=== PATIENT | male | born 1940 | race Caucasian/White ===

== ENCOUNTER → 2017-01-02 | Outpatient (CLI) | payer MEDICARE, BC ==
[~2017-01-02] MED LIST: 00186-0370-20 IH; ALEVE 220MG220 MG PO; AMOXICILLIN 8751 TAB PO; ANTIVERT 25MG25 MG PO; APRESOLINE 10MG10 MG PO; ASPIR-LOW81 MG PO; ASPIRIN 32325 MG/TAB PO; CARVEDILOL; CEPHALEXIN500 M1 PO; CORDARONE200 MG/TAB PO; COZAAR 50MG50 MG/TAB PO; ELIQUIS 5MG PO; GLUCOPHAGE500 MG/TAB PO; HCTZ; INCRUSE EL62.5 MCG/A IH; IRON325 M1 PO; LASIX 20MG TABL20 MG PO; LASIX 40MG TABL40 MG PO; LIPITOR20 MG PO; MEGA MULTI PO; NORVASC 10MG10 MG PO; OTC; PLAVIX 75MG TAB75 MG PO; POTASSIUM595 MG PO; RT ADVAIR HFA 1112 G IH; SYNTHROID0.05 MG/TA PO; TOPROL XL 25MG25 MG PO; TRICOR 48MG48 MG PO; VENTOLIN0.09 MG IH; VITAMINC1000TA; ZESTRIL2.5 MG PO
== END ==
LOC: COL.VAS 09:21
DX: I08.3 Combined rheumatic disorders of mitral, aortic and tricuspid valves (principal); I28.8 Other diseases of pulmonary vessels; Z95.0 Presence of cardiac pacemaker

== ENCOUNTER → 2017-06-05 | Outpatient (CLI) | payer MEDICARE, BC | LOC: COL.RAD 05-22 09:45 | DX: M47.816 Spondylosis without myelopathy or radiculopathy, lumbar region (principal); E11.9 Type 2 diabetes mellitus without complications; M48.061 Spinal stenosis, lumbar region without neurogenic claudication; M51.36 Other intervertebral disc degeneration, lumbar region; Z98.890 Other specified postprocedural states ==

== ENCOUNTER 2017-06-14 12:49 | Outpatient (CLI) | payer MEDICARE, BC ==
[2007-06-12 06:30] VITALS: BP 134/70
[~2017-06-14] VITALS: Ht 170.2 cm; Wt 116.5 kg
[2017-06-14] VITALS (7 sets, daily range): BP systolic 141–161; BP diastolic 71–97; PULSE 70–86
[2017-06-14] MEDS ORDERED: ALEVE 220MG220 MG PO (13:17)
== END 2017-06-14 16:55 | disposition home or self-care (01) ==
LOC: COL.RAD 12:49
DX: M48.061 Spinal stenosis, lumbar region without neurogenic claudication (principal); M54.16 Radiculopathy, lumbar region
CPT/HCPCS: J3301

== ENCOUNTER → 2017-07-11 | Outpatient (CLI) | payer MEDICARE, BC ==
[2007-06-12 06:30] VITALS: BP 134/70
[~2017-07-11] VITALS: Ht 170.2 cm; Wt 113.6 kg
[~2017-07-11] MED LIST changes: +DIOVAN 160MG160 MG PO; +LOPRESSOR 550 MG/TAB PO; +VIAGRA 25MG TAB25 MG PO
[2017-07-11 12:15] VITALS: BP 143/74; PULSE 85
[2017-07-11 13:21] VITALS: BP 156/82; PULSE 80
== END ==
LOC: COL.RAD 11:39
DX: M48.061 Spinal stenosis, lumbar region without neurogenic claudication (principal); M51.16 Intervertebral disc disorders with radiculopathy, lumbar region
CPT/HCPCS: J3301

== ENCOUNTER → 2017-08-02 | Outpatient (CLI) | payer MEDICARE, BC | LOC: COL.VAS 09:50 | DX: I51.7 Cardiomegaly (principal) ==

== ENCOUNTER → 2017-10-26 | Outpatient (CLI) | payer MEDICARE, BC ==
[2007-06-12 06:30] VITALS: BP 134/70
[~2017-10-26] VITALS: Ht 170.2 cm; Wt 116.2 kg
[2017-10-26 11:57] VITALS: BP 147/86; PULSE 91
== END ==
LOC: COL.RAD 11:40
DX: M51.16 Intervertebral disc disorders with radiculopathy, lumbar region (principal)
CPT/HCPCS: J3301

== ENCOUNTER → 2018-01-24 | Outpatient (CLI) | payer MEDICARE, BC | LOC: COL.CARD 12:42 | DX: I48.91 Unspecified atrial fibrillation (principal); I25.10 Atherosclerotic heart disease of native coronary artery without angina pectoris ==

== ENCOUNTER → 2018-08-05 | Outpatient (CLI) | payer MEDICARE, BC ==
[~2018-08-05] MED LIST changes: +ASPIRIN E.C. 8181 MG PO; +BYSTOLIC10 MG PO; +LIPITOR 10MG10 MG PO; +MULTI VITAMINS1 TAB PO; +REVATIO20 MG PO; +TOPROL XL 50MG50 MG PO
== END ==
LOC: COL.CARD 12:00
DX: R00.0 Tachycardia, unspecified (principal)

== ENCOUNTER → 2019-05-08 | Outpatient (CLI) | payer MEDICARE, BC | LOC: COL.VAS 11:54 → COL.RAD 11:54 → COL.VAS 12:30 | DX: I50.9 Heart failure, unspecified (principal); I51.7 Cardiomegaly; R09.89 Other specified symptoms and signs involving the circulatory and respiratory systems; M47.814 Spondylosis without myelopathy or radiculopathy, thoracic region; I08.1 Rheumatic disorders of both mitral and tricuspid valves ==

== ENCOUNTER 2020-11-18 15:36 | Emergency (ER) | payer MEDICARE, BC ==
[2007-06-12 06:30] VITALS: BP 134/70
[~2020-11-18] VITALS: Ht 165.1 cm; Wt 113.6 kg
[2020-11-18 15:52] VITALS: TEMP 97.8
[2020-11-18 16:26] LABS: BASO # 0.1 (0.0-0.2); BASO % 0.6 % (0.0-2.0); EOS # 0.4 (0.0-0.7); EOS % 4.1 % (0-4.0); GRAN # 7.1 (1.4-6.5); GRAN % 71.8 % (42.2-75.2); HEMATOCRIT 48.5 % (42.0-52.0); HEMOGLOBIN 15.1 g/dl (13.5-18.0); LYMPH # 1.5 (1.2-3.4); LYMPH % 15.2 % (20.0-51.0); MEAN CELL VOLUME 90 fl (80.0-100.0); MEAN CORPUSCULAR HEMOGLOBIN 28 pg (27.0-31.0); MEAN CORPUSCULAR HGB CONC 31 g/dl (33.0-37.0); MEAN PLATELET VOLUME 8.7 fl (7.4-10.4); MONO # 0.8 (0.1-0.6); MONO % 7.8 % (1.7-9.3); PLATELET COUNT 283 K/mm3 (130-400); REDCELL DISTRIBUTION WIDTH-CV 15.3 % (11.5-14.5)
[2020-11-18 16:30] LABS: ALBUMIN 4.3 gm/dL (3.5-5.0); BILIRUBIN,TOTAL 0.6 mg/dL (0.0-1.0); CALCIUM 9.1 mg/dL (8.4-10.2); CREATININE, serum 1.12 (0.66-1.25); TOTAL PROTEIN 7.6 gm/dL (6.4-8.2)
[2020-11-18 16:41] LABS: INR 1.1 (0.8-3.0); PROTHROMBIN TIME 12.4 SECONDS (9.7-12.8)
[2020-11-18 16:43] LABS: TROPONIN-I 0.03 ng/mL (0.000-0.035)
[2020-11-18] MEDS ORDERED: PLAVIX 75MG TAB75 MG PO (18:33)
[2020-11-18 18:53] VITALS: BP 135/97; PULSE 79
== END 2020-11-18 19:06 | disposition home or self-care (01) ==
LOC: COL.ER 15:36
PROVIDERS: Emergency Medicine
DX: G45.9 Transient cerebral ischemic attack, unspecified (principal); E11.9 Type 2 diabetes mellitus without complications; I48.91 Unspecified atrial fibrillation; I25.10 Atherosclerotic heart disease of native coronary artery without angina pectoris; I10 Essential (primary) hypertension; E78.5 Hyperlipidemia, unspecified; Z79.84 Long term (current) use of oral hypoglycemic drugs; Z79.82 Long term (current) use of aspirin
CPT/HCPCS: J7030

== ENCOUNTER → 2020-11-23 | Day surgery (SDC) | payer MEDICARE, BC ==
[~2020-11-23] MED LIST changes: +ALDACTONE 25MG25 M1 PO; +PACERONE400 MG PO; +ZEBETA 5MG5 MG PO
== END ==
LOC: COL.CAR 08:00
DX: R94.39 Abnormal result of other cardiovascular function study (principal); Z53.8 Procedure and treatment not carried out for other reasons

== ENCOUNTER 2021-01-11 09:14 | Day surgery (SDC) | payer MEDICARE, BC ==
[2007-06-12 06:30] VITALS: BP 134/70
[~2021-01-11] VITALS: Ht 165.1 cm; Wt 114.8 kg
[2021-01-11] VITALS (10 sets, daily range): BP systolic 105–135; BP diastolic 70–113; PULSE 77–108; TEMP 97.7
[~2021-01-11 09:14] MED LIST changes: -ALDACTONE 25MG25 M1 PO; -PACERONE400 MG PO; -ZEBETA 5MG5 MG PO
[2021-01-11 10:03] LABS: HEMATOCRIT 51.8 % (42.0-52.0); HEMOGLOBIN 16.7 g/dl (13.5-18.0); MEAN CELL VOLUME 86 fl (80.0-100.0); MEAN CORPUSCULAR HEMOGLOBIN 28 pg (27.0-31.0); MEAN CORPUSCULAR HGB CONC 32 g/dl (33.0-37.0); MEAN PLATELET VOLUME 8.7 fl (7.4-10.4); PLATELET COUNT 282 K/mm3 (130-400); REDCELL DISTRIBUTION WIDTH-CV 15.6 % (11.5-14.5)
[2021-01-11 10:11] LABS: INR 1.2 (0.8-3.0); PROTHROMBIN TIME 12.9 SECONDS (9.7-12.8)
[2021-01-11 10:13] LABS: PARTIAL THROMBOPLASTIN TIME 28.3 SECONDS (26.0-37.0)
[2021-01-11 10:14] LABS: CALCIUM 9.6 mg/dL (8.4-10.2); CREATININE, serum 0.97 (0.66-1.25); POTASSIUM 4.5 mmol/L (3.4-5.0)
[2021-01-11] MEDS ORDERED: PLAVIX 75MG TAB75 MG PO (10:28)
[2021-01-11] MEDS ORDERED: LASIX 40MG TABL40 MG PO (10:29)
[2021-01-11] MEDS ORDERED: ZEBETA 5MG5 MG PO (10:29)
[2021-01-11] MEDS ORDERED: ALDACTONE 25MG25 M1 PO (10:30)
--- NOTE | 2021-01-11 11:52 | NUR ---
SEE MERGE FOR ALL MEDICATION ADMINSTRATION TIMES, INTRA AND POST SEDATION ASSESSMENTS
--- NOTE | 2021-01-11 16:20 | NUR ---
Pt sitting up in chair at bedside awaiting completion of discharge paperwork. Call light in reach.
[2021-01-11] MEDS ORDERED: PACERONE400 MG PO (16:25)
--- NOTE | 2021-01-11 16:45 | NUR ---
DC instructions reviewed with pt, he expresses understanding. Air has been removed from TR band in 2 ml increments with no bleeding or other issues. Rt radial puncture site covered with gauze and bandaid. IV DC'd with catheter intact. Pt assisted out by wheelchair to friend's car with belongings.
== END 2021-01-11 17:08 | disposition home or self-care (01) ==
LOC: COL.CAR 09:14
PROVIDERS: Internal Medicine Cardiovascular Disease
DX: I25.10 Atherosclerotic heart disease of native coronary artery without angina pectoris (principal); I48.0 Paroxysmal atrial fibrillation; I77.810 Thoracic aortic ectasia; E11.9 Type 2 diabetes mellitus without complications; G47.30 Sleep apnea, unspecified; E78.5 Hyperlipidemia, unspecified; I10 Essential (primary) hypertension; E78.2 Mixed hyperlipidemia; Z95.0 Presence of cardiac pacemaker; Z79.899 Other long term (current) drug therapy; Z79.82 Long term (current) use of aspirin; Z79.84 Long term (current) use of oral hypoglycemic drugs; Z87.891 Personal history of nicotine dependence
CPT/HCPCS: C1769; J1644; J2250; J3010

== ENCOUNTER 2021-02-08 07:09 | Day surgery (SDC) | payer MEDICARE, BC ==
[2007-06-12 06:30] VITALS: BP 134/70
[~2021-02-08] VITALS: Ht 170.3 cm; Wt 113.8 kg
[2021-02-08] VITALS (7 sets, daily range): BP systolic 119–131; BP diastolic 76–115; PULSE 61–72; TEMP 97.6
[~2021-02-08 07:09] MED LIST changes: +ALDACTONE 25MG25 M1 PO; +PACERONE400 MG PO; +ZEBETA 5MG5 MG PO
[2021-02-08 08:13] LABS: HEMATOCRIT 44.8 % (42.0-52.0); HEMOGLOBIN 14.3 g/dl (13.5-18.0); MEAN CELL VOLUME 88 fl (80.0-100.0); MEAN CORPUSCULAR HEMOGLOBIN 28 pg (27.0-31.0); MEAN CORPUSCULAR HGB CONC 32 g/dl (33.0-37.0); MEAN PLATELET VOLUME 8.8 fl (7.4-10.4); PLATELET COUNT 216 K/mm3 (130-400); RED BLOOD COUNT 5.12 M/mm3 (4.20-5.60); REDCELL DISTRIBUTION WIDTH-CV 16.4 % (11.5-14.5)
[2021-02-08] MEDS ORDERED: ZEBETA 5MG5 MG PO (08:18)
[2021-02-08] MEDS ORDERED: ELIQUIS 5MG PO (08:19)
[2021-02-08 08:20] LABS: INR 2.2 (0.8-3.0); PROTHROMBIN TIME 24.5 SECONDS (9.7-12.8)
[2021-02-08 08:23] LABS: PARTIAL THROMBOPLASTIN TIME 35.1 SECONDS (26.0-37.0)
[2021-02-08 08:26] LABS: CALCIUM 8.8 mg/dL (8.4-10.2); CREATININE, serum 1.26 (0.66-1.25); MAGNESIUM 1.8 mg/dL (1.6-2.3); POTASSIUM 4.1 mmol/L (3.4-5.0)
[2021-02-08 10:19] LABS: THYROID STIMULATING HORMONE 2.18 uIU/mL (0.465-4.680)
--- NOTE | 2021-02-08 12:00 | NUR ---
DC instructions reviewed with pt by VALERIO Huang. She also removed INT, site wrapped with coban, and assisted pt out to friend's car. Following procedure, pt has been free of complaint. Drank water and ate pudding without difficulty. Post procedure EKG completed prior to DC.
== END 2021-02-08 12:16 | disposition home or self-care (01) ==
LOC: COL.CAR 07:09
PROVIDERS: Internal Medicine Cardiovascular Disease
DX: I48.0 Paroxysmal atrial fibrillation (principal); E11.9 Type 2 diabetes mellitus without complications; I10 Essential (primary) hypertension; I25.10 Atherosclerotic heart disease of native coronary artery without angina pectoris; I42.0 Dilated cardiomyopathy; I77.819 Aortic ectasia, unspecified site; E78.2 Mixed hyperlipidemia; G47.30 Sleep apnea, unspecified; Z99.89 Dependence on other enabling machines and devices; Z90.89 Acquired absence of other organs; Z79.899 Other long term (current) drug therapy; Z79.02 Long term (current) use of antithrombotics/antiplatelets; Z79.890 Hormone replacement therapy; Z79.84 Long term (current) use of oral hypoglycemic drugs; Z79.52 Long term (current) use of systemic steroids; Z79.82 Long term (current) use of aspirin; Z87.891 Personal history of nicotine dependence
CPT/HCPCS: J2704

== ENCOUNTER 2021-08-24 06:49 | Day surgery (SDC) | payer MEDICARE, BC ==
[2007-06-12 06:30] VITALS: BP 134/70
[2021-08-24] VITALS (9 sets, daily range): BP systolic 106–134; BP diastolic 67–92; PULSE 69–107; TEMP 97.3
[~2021-08-24] VITALS: Ht 170.5 cm; Wt 123.0 kg
[2021-08-24 07:42] LABS: HEMATOCRIT 44.1 % (42.0-52.0); MEAN CELL VOLUME 88 fl (80.0-100.0); MEAN CORPUSCULAR HEMOGLOBIN 28 pg (27-31); MEAN CORPUSCULAR HGB CONC 32 g/dl (33.0-37.0); MEAN PLATELET VOLUME 8.9 fl (7.4-10.4); PLATELET COUNT 226 K/mm3 (130-400); RED BLOOD COUNT 5.04 M/mm3 (4.20-5.60); REDCELL DISTRIBUTION WIDTH-CV 14.2 % (11.5-14.5)
[2021-08-24] MEDS ORDERED: ALEVE 220MG220 MG PO (07:44)
[2021-08-24] MEDS ORDERED: LYRICA 100MG C100 M1 (07:45)
[2021-08-24] MEDS ORDERED: PACERONE200 MG PO (07:45)
[2021-08-24 07:51] LABS: INR 1.3 (0.8-3.0); PROTHROMBIN TIME 14.5 SECONDS (9.7-12.8)
[2021-08-24 07:53] LABS: PARTIAL THROMBOPLASTIN TIME 31.7 SECONDS (26.0-37.0)
[2021-08-24 07:59] LABS: CALCIUM 9.2 mg/dL (8.4-10.2); CREATININE, serum 1.8 mg/dL (0.72-1.25); POTASSIUM 4.8 mmol/L (3.5-4.5)
--- NOTE | 2021-08-24 09:27 | NUR ---
SEE MERGE DOCUMENTATION FOR MEDICATION ADMINISTRATION TIMES AND INTRA/POST PROCEDURE SEDATION ASSESSMENTS.
--- NOTE | 2021-08-24 10:15 | NUR ---
PT RETURNED TO EU 12 VIA BED FROM [place]UMBO[place], AWAKE AND ALERT, CALL LIGHT IN REACH, REVIEWED ACTIVITY LEVEL AND BEDREST WITH PT AND TR BAND ON RIGHT ARM. PT TAKES SNACK AND WATER AT THIS TIME AND MEAL ORDERED
--- NOTE | 2021-08-24 11:00 | NUR ---
NEW POST OP ORDERS, CHEST X-RAY DONE AND ADDITIONAL LAB ADD ON, PT STOOD TO VOID AT BEDSIDE, YELLOW CLEAR URINE UA GOTTEN 1140 AND TAKEN TO LAB
[2021-08-24] MEDS ORDERED: BETAPACE 120MG120 MG PO (11:04)
--- NOTE | 2021-08-24 11:30 | NUR ---
PT SITS ON SIDE OF BED FOR LUNCH, NO C/O, DR IN EARLIER TO TALK WITH PT
--- NOTE | 2021-08-24 12:15 | NUR ---
START RELEASE TR BAND 2CC AT A TIME OVER 20 MIN WITH NO BLEEDING OR SWELLING NOTED, BANDAID OVER SITE WITH COBAN FOR SUPPORT, PT SITS UP, AND IV D'CD INTACT. MOHS SURGEON/GENERAL DERMATOLOGIST CALLED AND STATES WAS HERE, SON CALLED EARLIER ALSO ON UPDATE
--- NOTE | 2021-08-24 13:00 | NUR ---
REVIEWED DISCHARGE INST. WITH PT, PT TO STOP BY PHARMACY TO FIELD SERVICE TECHNICIAN NEW MED, INFORMATION GIVEN TO PT. ALSO REVIEWED MEDICATIONS TO STOP ON TO BE ON HOLD PER ORDER OF REED SERRANO AND METFORMIN WITH START DATES. REVIEWED ACTIVITY LEVEL WITH WRIST AND PRECAUTIONS AND NEXT APPT WITH VERBAL UNDERSTANDING. PT DISCHARGED VIA W/C TO CAR WITH REPORTING ANALYST AND REMINDED PT TO FIELD SERVICE TECHNICIAN NEW RX
[2021-08-24 14:07] LABS: COLLECTION METHOD CLEAN CATCH
[2021-08-24 14:16] LABS: MUCOUS Present (NOT PRESENT); PH 5 (5-8); SQUAMOUS EPITHELIAL 0-2 /hpf (0-10); URINE APPEARANCE Clear (CLEAR/HAZY); URINE BACTERIA None Seen /hpf (NONE SEEN); URINE BILIRUBIN Negative (NEGATIVE); URINE BLOOD Negative (NEGATIVE); URINE COLOR Yellow (YELLOW); URINE GLUCOSE Negative (NEGATIVE); URINE KETONE Negative (NEGATIVE); URINE LEUKOCYTE ESTERASE Negative (NEGATIVE); URINE NITRATE Negative (NEGATIVE); URINE PROTEIN(semi-quant) Negative (NEGATIVE); URINE RBC 0-2 /hpf (0-2); URINE UROBILINOGEN Negative (NEGATIVE)
== END 2021-08-24 13:00 | disposition home or self-care (01) ==
LOC: COL.CAR 06:49
PROVIDERS: Internal Medicine Cardiovascular Disease
DX: I25.119 Atherosclerotic heart disease of native coronary artery with unspecified angina pectoris (principal); R94.39 Abnormal result of other cardiovascular function study; I48.91 Unspecified atrial fibrillation; E11.9 Type 2 diabetes mellitus without complications; E78.5 Hyperlipidemia, unspecified; I10 Essential (primary) hypertension; G47.33 Obstructive sleep apnea (adult) (pediatric); I42.0 Dilated cardiomyopathy; I34.0 Nonrheumatic mitral (valve) insufficiency; I27.20 Pulmonary hypertension, unspecified
CPT/HCPCS: C1769; J1644; J2250; J3010; Q9967

== ENCOUNTER 2021-11-17 05:58 | Inpatient (IN) | payer MEDICARE, BC ==
[~2021-11-17] VITALS: Ht 170.2 cm; Wt 123.0 kg
[~2021-11-17 05:58] MED LIST changes: +BETAPACE 120MG120 MG PO; +LYRICA 100MG C100 M1 PO; +PACERONE200 MG PO
[2021-11-21 08:27] VITALS: BP 130/56; PULSE 102; TEMP 98.4
--- NOTE | 2021-11-21 09:40 | NUR ---
Pt arrived to medical unit room 358 around 0830. Oriented pt to room. Med rec updated and admission assessments completed. Tele monitoring implemented and EKG done per orders. Pt currently in Afib w/rate 80-100. Reports increased SOA w/minimal activity over last few days. Denies pain or other concerns. 20 gauge IV started to left AC. notified of pt's arrival. Call light in reach. Continuing to monitor.
[2021-11-21 09:46] LABS: BASO % 0.6 % (0.0-2.0); EOS # 0.2 K/mm3 (0.0-0.7); EOS % 2.4 % (0.0-4.0); GRAN # 4.9 K/mm3 (1.4-6.5); GRAN % 78.8 % (42.2-75.2); HEMATOCRIT 31.9 % (42.0-52.0); HEMOGLOBIN 9.8 g/dl (13.5-18.0); LYMPH # 0.6 K/mm3 (1.2-3.4); LYMPH % 10.1 % (20.0-51.0); MEAN CELL VOLUME 82 fl (80.0-100.0); MEAN CORPUSCULAR HEMOGLOBIN 25 pg (27-31); MEAN CORPUSCULAR HGB CONC 31 g/dl (33.0-37.0); MEAN PLATELET VOLUME 8.9 fl (7.4-10.4); MONO # 0.5 K/mm3 (0.1-0.6); MONO % 7.6 % (1.7-9.3); PLATELET COUNT 299 K/mm3 (130-400); RED BLOOD COUNT 3.89 M/mm3 (4.20-5.60); REDCELL DISTRIBUTION WIDTH-CV 15.5 % (11.5-14.5)
[2021-11-21 09:53] LABS: INR 1.9 (0.8-3.0); PROTHROMBIN TIME 21.1 SECONDS (9.7-12.8)
[2021-11-21 10:05] LABS: ALBUMIN 3.7 gm/dL (3.4-4.8); CALCIUM 8.9 mg/dL (8.4-10.2); CREATININE, serum 1.22 mg/dL (0.72-1.25); MAGNESIUM 2.2 mg/dL (1.6-2.6); POTASSIUM 4.1 mmol/L (3.5-4.5); TOTAL PROTEIN 6.9 gm/dL (6.2-8.1)
--- NOTE | 2021-11-21 10:30 | NUR ---
QTC ON INITIAL EKG 564. NOTIFIED AND VERBAL OKAY GIVEN TO ADMINISTER SOTALOL.
[2021-11-21] MEDS ORDERED: ZEBETA 5MG5 MG PO (10:36)
--- NOTE | 2021-11-21 10:54 | NUR ---
SW met with the patient to discuss discharge plan. The patient is hard of hearing. The patient lives alone outside of [place], by [facility]. He reports independence with ADLs and has a cane and walker. The patient's PCP is Dr. Manuel Jarrett and he receives his medications from [facility]. The patient does not have a DPOA-HC in EMR, but he states he believes he has one completed and he designated his son, Jaime (ph#[phone]). Jaime and his , Eliza (ph#[phone]), live in [place]. The patient plans on returning home upon discharge. No additional needs at this time. *Discharge plan: home*
[2021-11-21 11:14] VITALS: BP 126/78; PULSE 87; TEMP 98.1
[2021-11-21 15:47] VITALS: BP 126/86; PULSE 81; TEMP 98
--- NOTE | 2021-11-21 18:27 | NUR ---
Pt had uneventful day. First dose of sotalol given this morning. Pt continues to be monitored on telemetry and remains in Afib, rate 80s-90s. Denies needs. Continuing to monitor.
[2021-11-21 19:17] VITALS: BP 138/81; PULSE 80; TEMP 97.5
--- NOTE | 2021-11-21 23:08 | NUR ---
PATIENT ALERT AND ORIENTED. WAS RESTING AT START OF SHIFT WITH CPAP ON. NOTIFIED BY [employer] THAT PATIENT HAD 6 BEAT RUN OF VTAC AT APPROXIMATELY 1947, EKG WAS DONE FOR QTC AT 1953 WITH NO SIGNIFICANT CHANGES. QTC WAS 556. ATTEMPTED TO CONTACT [facility] WITH NO SUCCESS. CALL PLACED TO [employer] AND WAS INSTRUCTED TO CALL [facility]. [facility] VERBAL ORDER TO HOLD SOTALOL FOR TONIGHT. HS MEDICATIONS GIVEN, PRN RESTORIL FOR INSOMNIA GIVEN. PATIENT DENIES PAIN, CURRENTLY SITTING AT SIDE OF BED WATCHING TV. CALL LIGHT IN REACH.
[2021-11-21 23:52] VITALS: BP 120/74; PULSE 73; TEMP 97.6
[2021-11-22 03:30] VITALS: BP 114/64; PULSE 74; TEMP 98.2
[2021-11-22 06:34] LABS: CALCIUM 8.7 mg/dL (8.4-10.2); CREATININE, serum 1.26 mg/dL (0.72-1.25); POTASSIUM 4.5 mmol/L (3.5-4.5)
--- NOTE | 2021-11-22 07:30 | NUR ---
Patient sitting up in the recliner, A&Ox4. [place]. VSS. IV CDI. Denies pain and discomfort. Nurse assisted with ordering breakfast. No further needs expressed. Call light within reach
[2021-11-22 07:48] VITALS: BP 121/70; PULSE 79; TEMP 98.3
--- NOTE | 2021-11-22 10:51 | NUR ---
First visit from the senior mobile solutions architect. No needs right now.
[2021-11-22 11:35] VITALS: BP 100/75; PULSE 76; TEMP 97.4
[2021-11-22 16:00] VITALS: BP 114/73; PULSE 80; TEMP 98.5
--- NOTE | 2021-11-22 19:10 | NUR ---
Patient sitting up in the recliner. A&Ox4. VSS. IV CDI. Denies pain and discomfort. Request nursing staff to assist with covering him up for bed with a warm blanket. Call light within reach
[2021-11-22 20:04] VITALS: BP 109/70; PULSE 73; TEMP 98
[2021-11-22 23:26] VITALS: BP 112/63; PULSE 80; TEMP 97.4
[2021-11-23] VITALS (8 sets, daily range): BP systolic 90–119; BP diastolic 53–80; PULSE 71–107; TEMP 97.3–97.7
[2021-11-23 06:17] LABS: BASO # 0.1 K/mm3 (0.0-0.2); BASO % 0.8 % (0.0-2.0); EOS # 0.2 K/mm3 (0.0-0.7); GRAN # 4.7 K/mm3 (1.4-6.5); GRAN % 73.7 % (42.2-75.2); LYMPH # 0.7 K/mm3 (1.2-3.4); MEAN CELL VOLUME 84 fl (80.0-100.0); MEAN CORPUSCULAR HGB CONC 30 g/dl (33.0-37.0); MEAN PLATELET VOLUME 9.3 fl (7.4-10.4); MONO # 0.7 K/mm3 (0.1-0.6); MONO % 11.2 % (1.7-9.3); PLATELET COUNT 282 K/mm3 (130-400); RED BLOOD COUNT 3.85 M/mm3 (4.20-5.60); REDCELL DISTRIBUTION WIDTH-CV 15.4 % (11.5-14.5)
[2021-11-23 06:25] LABS: HEMATOCRIT 32.2 % (42.0-52.0); HEMOGLOBIN 9.6 g/dl (13.5-18.0); MEAN CORPUSCULAR HEMOGLOBIN 25 pg (27-31)
[2021-11-23 06:43] LABS: CALCIUM 8.6 mg/dL (8.4-10.2); CREATININE, serum 1.32 mg/dL (0.72-1.25); MAGNESIUM 2.1 mg/dL (1.6-2.6); POTASSIUM 4.2 mmol/L (3.5-4.5)
--- NOTE | 2021-11-23 08:00 | NUR ---
Shift assessment complete. Pt resting in bed, A&Ox4. Heart rhythm remains irregular, rate controlled. Scheduled for cardioversion around 1000 this morning. Vitals stable. Denies needs. Continuing to monitor.
--- NOTE | 2021-11-23 09:30 | NUR ---
Pt taken off unit for cardioversion at this time.
[2021-11-23] MEDS ORDERED: ENTRESTO 24 MG1 EACH PO (12:54)
[2021-11-23] MEDS ORDERED: BETAPACE 80MG80 MG PO (12:54)
[2021-11-23] MEDS ORDERED: JARDIANCE10 PO (12:55)
--- NOTE | 2021-11-23 13:34 | NUR ---
IV to left AC removed w/tip intact. Discharge instructions discussed w/pt and questions answered. Pt dressed and in room awaiting ride.
--- NOTE | 2021-11-23 13:50 | NUR ---
Pt escorted out via wheelchair at this time.
== END 2021-11-23 13:51 | disposition home or self-care (01) | DRG 309 ==
LOC: MEDICAL 11-21 05:57
PROVIDERS: ADMIT Internal Medicine Cardiovascular Disease
PROC: 5A2204Z Restoration of Cardiac Rhythm, Single (ICD-10-PCS; principal; 2021-11-21)
DX: I48.91 Unspecified atrial fibrillation (principal); Z68.41 Body mass index [BMI] 40.0-44.9, adult; I10 Essential (primary) hypertension; I25.10 Atherosclerotic heart disease of native coronary artery without angina pectoris; E78.5 Hyperlipidemia, unspecified; G47.33 Obstructive sleep apnea (adult) (pediatric); G89.29 Other chronic pain; E66.01 Morbid (severe) obesity due to excess calories; E11.9 Type 2 diabetes mellitus without complications; E03.9 Hypothyroidism, unspecified; Z79.02 Long term (current) use of antithrombotics/antiplatelets; Z79.84 Long term (current) use of oral hypoglycemic drugs; Z79.82 Long term (current) use of aspirin; Z95.5 Presence of coronary angioplasty implant and graft; Z95.0 Presence of cardiac pacemaker; Z23 Encounter for immunization
CPT/HCPCS: A9270; J2704

== ENCOUNTER 2022-04-19 13:02 | Inpatient (IN) | payer MEDICARE, BC ==
[~2022-04-19] VITALS: Ht 170.2 cm; Wt 112.8 kg
[~2022-04-19 13:02] MED LIST changes: +BETAPACE 80MG80 MG PO; +ENTRESTO 24 MG1 EACH PO; +JARDIANCE10 PO
[2022-04-19 13:31] LABS: HEMATOCRIT 38.3 % (42.0-52.0); HEMOGLOBIN 11.2 g/dl (13.5-18.0); MEAN CELL VOLUME 71 fl (80.0-100.0); MEAN CORPUSCULAR HEMOGLOBIN 21 pg (27-31); MEAN CORPUSCULAR HGB CONC 29 g/dl (33.0-37.0); MEAN PLATELET VOLUME 8.8 fl (7.4-10.4); PLATELET COUNT 322 K/mm3 (130-400); RED BLOOD COUNT 5.38 M/mm3 (4.20-5.60); REDCELL DISTRIBUTION WIDTH-CV 21.4 % (11.5-14.5)
[2022-04-19 13:44] LABS: ALBUMIN 3.4 gm/dL (3.4-4.8); BILIRUBIN,TOTAL 1.3 mg/dL (0.2-1.2); CALCIUM 8.9 mg/dL (8.4-10.2); CREATININE, serum 1.62 mg/dL (0.72-1.25); POTASSIUM 4.7 mmol/L (3.5-4.5); TOTAL PROTEIN 6.7 gm/dL (6.2-8.1)
[2022-04-19 13:53] LABS: TROPONIN-I 0.116 ng/mL (0.00-0.033)
[2022-04-19 14:09] LABS: ANISOCYTOSIS 2+; EOSINOPHIL 2 % (0-4); HYPOCHROMIA 3+; LYMPHOCYTE 7 % (20.0-51.0); MICROCYTOSIS 1+; NEUTROPHILS 86 % (42.0-75.2); OVALOCYTES 1+; PLATELET ESTIMATE NORMAL (NORMAL)
[2022-04-19 18:46] LABS: COLLECTION METHOD CLEAN CATCH
[2022-04-19 18:55] LABS: URINE APPEARANCE Clear (CLEAR/HAZY); URINE BLOOD Negative (NEGATIVE); URINE COLOR Yellow (YELLOW); URINE GLUCOSE 2+ (NEGATIVE); URINE KETONE Negative (NEGATIVE); URINE NITRATE Positive (NEGATIVE); URINE PROTEIN(semi-quant) Negative (NEGATIVE); URINE UROBILINOGEN 0.2 E.U/dL (0.2-1.0)
[2022-04-19 18:59] LABS: MUCOUS Present (NOT PRESENT); SQUAMOUS EPITHELIAL 0-2 /hpf (0-10); URINE BACTERIA None Seen /hpf (NONE SEEN)
[2022-04-19] MEDS ORDERED: LIPITOR20 MG PO (19:47)
[2022-04-19] MEDS ORDERED: LYRICA 75MG CAP75 MG PO (19:49)
[2022-04-20 07:41] LABS: BASO % 0.3 % (0.0-2.0); EOS # 0.1 K/mm3 (0.0-0.7); EOS % 0.7 % (0.0-4.0); GRAN # 12.7 K/mm3 (1.4-6.5); GRAN % 84.3 % (42.2-75.2); HEMOGLOBIN 10.3 g/dl (13.5-18.0); LYMPH # 0.8 K/mm3 (1.2-3.4); LYMPH % 5.4 % (20.0-51.0); MEAN CELL VOLUME 71 fl (80.0-100.0); MEAN CORPUSCULAR HEMOGLOBIN 21 pg (27-31); MEAN CORPUSCULAR HGB CONC 30 g/dl (33.0-37.0); MEAN PLATELET VOLUME 8.8 fl (7.4-10.4); MONO # 1.3 K/mm3 (0.1-0.6); MONO % 8.8 % (1.7-9.3); PLATELET COUNT 303 K/mm3 (130-400); RED BLOOD COUNT 4.89 M/mm3 (4.20-5.60)
[2022-04-20 07:47] VITALS: BP 106/54; PULSE 74; TEMP 98
[2022-04-20 07:47] LABS: CALCIUM 8.8 mg/dL (8.4-10.2); CREATININE, serum 1.43 mg/dL (0.72-1.25); POTASSIUM 4.2 mmol/L (3.5-4.5)
[2022-04-20 07:50] LABS: HEMATOCRIT 34.6 % (42.0-52.0)
[2022-04-20 11:29] VITALS: BP 101/48; PULSE 75; TEMP 98.7
[2022-04-20 16:36] VITALS: BP 105/50; PULSE 75; TEMP 98.2
[2022-04-21 00:19] VITALS: BP 111/52; PULSE 68; TEMP 97.6
[2022-04-21 04:17] VITALS: BP 104/58; PULSE 78; TEMP 98.2
[2022-04-21 07:22] LABS: BASO % 0.5 % (0.0-2.0); EOS # 0.2 K/mm3 (0.0-0.7); EOS % 2.4 % (0.0-4.0); GRAN # 6.2 K/mm3 (1.4-6.5); GRAN % 78.4 % (42.2-75.2); HEMATOCRIT 37.8 % (42.0-52.0); LYMPH # 0.6 K/mm3 (1.2-3.4); LYMPH % 7.5 % (20.0-51.0); MEAN CELL VOLUME 73 fl (80.0-100.0); MEAN CORPUSCULAR HEMOGLOBIN 21 pg (27-31); MEAN CORPUSCULAR HGB CONC 29 g/dl (33.0-37.0); MEAN PLATELET VOLUME 9.1 fl (7.4-10.4); MONO # 0.9 K/mm3 (0.1-0.6); MONO % 10.9 % (1.7-9.3); PLATELET COUNT 336 K/mm3 (130-400); RED BLOOD COUNT 5.18 M/mm3 (4.20-5.60); REDCELL DISTRIBUTION WIDTH-CV 21.3 % (11.5-14.5)
[2022-04-21 07:30] LABS: ALBUMIN 3.1 gm/dL (3.4-4.8); CALCIUM 8.8 mg/dL (8.4-10.2); CREATININE, serum 1.22 mg/dL (0.72-1.25); MAGNESIUM 2.3 mg/dL (1.6-2.6); PHOSPHOROUS 2.7 mg/dL (2.3-4.7); POTASSIUM 4.4 mmol/L (3.5-4.5)
[2022-04-21 07:52] VITALS: BP 111/58; PULSE 73; TEMP 97.5
[2022-04-21 11:42] VITALS: BP 119/61; PULSE 71; TEMP 98.5
[2022-04-21 16:08] VITALS: BP 113/54; PULSE 71; TEMP 98.6
[2022-04-21 19:37] VITALS: BP 104/59; PULSE 102; TEMP 98.4
[2022-04-22 06:50] LABS: BASO % 0.7 % (0.0-2.0); EOS # 0.2 K/mm3 (0.0-0.7); EOS % 3.7 % (0.0-4.0); GRAN # 3.6 K/mm3 (1.4-6.5); GRAN % 67.5 % (42.2-75.2); HEMATOCRIT 38.2 % (42.0-52.0); HEMOGLOBIN 11.1 g/dl (13.5-18.0); LYMPH # 0.6 K/mm3 (1.2-3.4); LYMPH % 10.8 % (20.0-51.0); MEAN CELL VOLUME 73 fl (80.0-100.0); MEAN CORPUSCULAR HEMOGLOBIN 21 pg (27-31); MEAN CORPUSCULAR HGB CONC 29 g/dl (33.0-37.0); MONO # 0.9 K/mm3 (0.1-0.6); MONO % 16.9 % (1.7-9.3); PLATELET COUNT 310 K/mm3 (130-400); RED BLOOD COUNT 5.23 M/mm3 (4.20-5.60); REDCELL DISTRIBUTION WIDTH-CV 21.7 % (11.5-14.5)
[2022-04-22 07:15] LABS: CALCIUM 8.9 mg/dL (8.4-10.2); MAGNESIUM 2.3 mg/dL (1.6-2.6); PHOSPHOROUS 3.1 mg/dL (2.3-4.7); POTASSIUM 4.6 mmol/L (3.5-4.5)
[2022-04-22 08:10] VITALS: BP 112/60; PULSE 75; TEMP 98.5
[2022-04-22 12:04] VITALS: BP 112/58; PULSE 76; TEMP 98.2
[2022-04-22 16:00] VITALS: BP 108/53; PULSE 71; TEMP 98.1
[2022-04-22 19:17] VITALS: BP 120/95; PULSE 81; TEMP 97.9
[2022-04-23] VITALS (7 sets, daily range): BP systolic 92–122; BP diastolic 54–64; PULSE 62–81; TEMP 98–98.6
[2022-04-23 06:24] LABS: BASO # 0.1 K/mm3 (0.0-0.2); BASO % 0.9 % (0.0-2.0); EOS # 0.3 K/mm3 (0.0-0.7); EOS % 5.2 % (0.0-4.0); GRAN # 3.7 K/mm3 (1.4-6.5); GRAN % 64.8 % (42.2-75.2); HEMOGLOBIN 10.3 g/dl (13.5-18.0); LYMPH # 0.8 K/mm3 (1.2-3.4); LYMPH % 14.3 % (20.0-51.0); MEAN CELL VOLUME 73 fl (80.0-100.0); MEAN CORPUSCULAR HEMOGLOBIN 21 pg (27-31); MEAN CORPUSCULAR HGB CONC 29 g/dl (33.0-37.0); MONO # 0.8 K/mm3 (0.1-0.6); MONO % 14.5 % (1.7-9.3); PLATELET COUNT 277 K/mm3 (130-400); RED BLOOD COUNT 4.84 M/mm3 (4.20-5.60); REDCELL DISTRIBUTION WIDTH-CV 21.3 % (11.5-14.5)
[2022-04-23 06:30] LABS: HEMATOCRIT 35.3 % (42.0-52.0)
[2022-04-23 06:45] LABS: ALBUMIN 2.8 gm/dL (3.4-4.8); CALCIUM 8.6 mg/dL (8.4-10.2); CREATININE, serum 0.89 mg/dL (0.72-1.25); MAGNESIUM 2.2 mg/dL (1.6-2.6); PHOSPHOROUS 2.6 mg/dL (2.3-4.7); POTASSIUM 4.6 mmol/L (3.5-4.5)
[2022-04-23] MEDS ORDERED: OMNICEF 300MG300 MG PO (15:58)
[2022-04-24 03:30] VITALS: BP 101/54; PULSE 64; TEMP 98.7
[2022-04-24 06:59] LABS: ALBUMIN 2.9 gm/dL (3.4-4.8); CALCIUM 8.5 mg/dL (8.4-10.2); CREATININE, serum 1.06 mg/dL (0.72-1.25); MAGNESIUM 2.1 mg/dL (1.6-2.6); POTASSIUM 4.3 mmol/L (3.5-4.5)
[2022-04-24 08:30] VITALS: BP 105/46; PULSE 83; TEMP 97.8
[2022-04-24] MEDS ORDERED: OMNICEF 300MG300 MG PO (10:14)
[2022-04-24] MEDS ORDERED: LYRICA 75MG CAP75 MG PO (11:54)
== END 2022-04-24 12:25 | DRG 872 ==
LOC: COL.ER 13:02 → MEDICAL 19:35
PROVIDERS: Internal Medicine; Nurse Practitioner; Nurse Practitioner Family; ADMIT Student in an Organized Health Care Education/Training Program
DX: A41.9 Sepsis, unspecified organism (principal); N39.0 Urinary tract infection, site not specified; N17.9 Acute kidney failure, unspecified; I50.22 Chronic systolic (congestive) heart failure; E87.2 Acidosis; I13.0 Hypertensive heart and chronic kidney disease with heart failure and stage 1 through stage 4 chronic kidney disease, or unspecified chronic kidney disease; I48.92 Unspecified atrial flutter; G93.40 Encephalopathy, unspecified; Z66 Do not resuscitate; I48.91 Unspecified atrial fibrillation; I25.10 Atherosclerotic heart disease of native coronary artery without angina pectoris; E78.5 Hyperlipidemia, unspecified; G89.29 Other chronic pain; M25.569 Pain in unspecified knee; Z20.822 Contact with and (suspected) exposure to COVID-19; I08.1 Rheumatic disorders of both mitral and tricuspid valves; D64.9 Anemia, unspecified; E11.22 Type 2 diabetes mellitus with diabetic chronic kidney disease; N18.9 Chronic kidney disease, unspecified; E11.65 Type 2 diabetes mellitus with hyperglycemia; E87.5 Hyperkalemia; G47.30 Sleep apnea, unspecified; I27.20 Pulmonary hypertension, unspecified; B96.20 Unspecified Escherichia coli [E. coli] as the cause of diseases classified elsewhere; M79.671 Pain in right foot; M15.4 Erosive (osteo)arthritis; Z79.890 Hormone replacement therapy; Z90.89 Acquired absence of other organs; Z90.49 Acquired absence of other specified parts of digestive tract; Z95.0 Presence of cardiac pacemaker; Z95.5 Presence of coronary angioplasty implant and graft; Z79.84 Long term (current) use of oral hypoglycemic drugs; Z87.891 Personal history of nicotine dependence; Z79.01 Long term (current) use of anticoagulants; Z23 Encounter for immunization
CPT/HCPCS: 99231-AI; 99232-AI; 99239; A9270; J0696; J7040